=== PATIENT | male | born 1955 | race Caucasian/White ===

== ENCOUNTER 2018-02-12 15:53 | Emergency (ER) | payer BC ==
[~2018-02-12] VITALS: Ht 185.4 cm; Wt 136.4 kg
[~2018-02-12 15:53] MED LIST: ASPI-1265 PO; GLUC-133 PO; LOSA1TAB39 PO; MELA3TAB PO; OMEG1000 PO; SOTA80TA73 PO
[2018-02-12] MEDS ORDERED: IBUP-2417 PO (16:16)
[2018-02-12 16:20] LABS: BASOPHILS % (AUTO) 0 % (0-1); EOSINOPHILS # (AUTO) 0.3 X10'3 (0-0.9); EOSINOPHILS % (AUTO) 2.5 % (0-6); HEMATOCRIT 50.3 % (42.0-52.0); HEMOGLOBIN 17.1 g/dl (14.0-17.9); LYMPHOCYTES # (AUTO) 1.5 X10'3 (1.1-4.8); LYMPHOCYTES % (AUTO) 13.9 % (21-51); MEAN CORPUSCULAR HEMOGLOBIN 31.5 PG (27.0-31.0); MEAN CORPUSCULAR VOLUME 92.6 FL (78-98); MEAN PLATELET VOLUME 8.1 FL (7.4-10.4); MONOCYTES # (AUTO) 0.7 X10'3 (0-0.9); NEUTROPHILS # (AUTO) 8.6 X10'3 (1.8-7.7); NEUTROPHILS % (AUTO) 77.6 % (42-75); PLATELET COUNT 364 X10'3 (140-440); RED BLOOD COUNT 5.43 X10'6 (4.70-6.10); RED CELL DISTRIBUTION WIDTH 14.4 % (11.5-14.5)
[2018-02-12 16:30] LABS: PARTIAL THROMBOPLASTIN TIME 25 SECONDS (22-32); PROTHROMBIN TIME 10.8 SECONDS (9.0-12.0)
[2018-02-12 16:35] LABS: ALANINE AMINOTRANSFERASE 87 U/L (12-78); ALBUMIN 3.8 G/DL (3.4-5.0); ALBUMIN/GLOBULIN RATIO 0.8 (1.1-1.5); ALKALINE PHOSPHATASE 77 IU/L (46-116); ANION GAP 11 (8-16); ASPARTATE AMINO TRANSFERASE 47 U/L (10-37); BILIRUBIN,TOTAL 0.7 MG/DL (0.1-1.0); BLOOD UREA NITROGEN 13 MG/DL (7-18); BUN/CREATININE RATIO 12.6 (5.4-32.0); CHLORIDE 103 MMOL/L (99-107); CREATININE 1.03 MG/DL (0.60-1.10); GLUCOSE 132 MG/DL (70-104); SODIUM 139 MMOL/L (135-145); TOTAL CARBON DIOXIDE 24.7 MMOL/L (24-32); TOTAL PROTEIN 8.5 G/DL (6.4-8.2); eGFR 73 ML/MIN
[2018-02-12] MEDS ORDERED: ondansetron/PF 4mg/2ml inj IV ONE (16:45)
[2018-02-12] MEDS ORDERED: morphine 4 MG/ML inj SYRINge IV ONE (16:45)
[2018-02-12] MEDS ORDERED: LIDOcaine Viscous 15ml cup MM PRN (16:50)
[2018-02-12] MEDS ORDERED: mag hydrox/Alum hydrox/simeth 30ml oral suspension PO ONE (16:50)
[2018-02-12] MEDS ORDERED: normal saline 1000ML IV soln IVB ONE (17:05)
[2018-02-12] MEDS ORDERED: pantoprazole 40 MG vial IV ONE (17:05)
[2018-02-12] MEDS ORDERED: famotidine/PF 10 mg/ml inj IV ONE (17:05)
[2018-02-12 17:12] LABS: LIPASE 108 U/L (73-393)
[2018-02-12] MEDS ORDERED: iohexol 350MG/ML 100ml bottle IV ONE (17:50)
[2018-02-12 19:42] VITALS: BP 154/89
== END 2018-02-12 19:44 | disposition home or self-care (01) ==
LOC: ER 15:54
DX: R10.13 Epigastric pain (principal); M54.6 Pain in thoracic spine; R11.0 Nausea; I10 Essential (primary) hypertension; I48.91 Unspecified atrial fibrillation; Z79.82 Long term (current) use of aspirin; Z79.899 Other long term (current) drug therapy
CPT/HCPCS: 36415; 71045; 71275; 74174; 80053; 83690; 84484; 85025; 85610; 85730; 93005; 96361; 96374; 96375; 99285; C9113; J3490; J7030; Q9967

== ENCOUNTER 2022-01-15 13:35 | Outpatient (CLI) | payer MEDICARE, OTHER ==
[~2022-01-15 13:35] MED LIST changes: +IBUP-2417 PO; -MELA3TAB PO; +MELA3TAB39 PO
[2022-01-15 14:48] LABS: BASOPHILS # (AUTO) 0.1 X10'3 (0-0.2); BASOPHILS % (AUTO) 0.9 % (0-1); EOSINOPHILS # (AUTO) 0.5 X10'3 (0-0.9); EOSINOPHILS % (AUTO) 5.3 % (0-6); LYMPHOCYTES % (AUTO) 19.9 % (21-51); MEAN CORPUSCULAR HEMOGLOBIN 31.9 PG (27.0-31.0); MEAN CORPUSCULAR HGB CONC 34.4 g/dL (33.0-36.5); MEAN CORPUSCULAR VOLUME 92.9 FL (78-98); MEAN PLATELET VOLUME 7.9 FL (7.4-10.4); MONOCYTES % (AUTO) 9.7 % (2-12); NEUTROPHILS # (AUTO) 6.5 X10'3 (1.8-7.7); NEUTROPHILS % (AUTO) 64.2 % (42-75); PRE OP HEMATOCRIT 44.3 % (42.0-52.0); PRE OP HEMOGLOBIN 15.2 g/dL (14.0-17.9); PRE OP PLATELET COUNT 374 X10'3 (140-440); RED BLOOD COUNT 4.77 X10'6 (4.70-6.10); RED CELL DISTRIBUTION WIDTH 14.1 % (11.5-14.5)
[2022-01-15 15:03] LABS: ALBUMIN 3.8 G/DL (3.4-5.0); ALBUMIN/GLOBULIN RATIO 0.9 (1.1-1.5); ALKALINE PHOSPHATASE 91 IU/L (46-116); BLOOD UREA NITROGEN 28 MG/DL (7-18); BUN/CREATININE RATIO 21.7 (5.4-32.0); CALCIUM 9.4 MG/DL (8.5-10.1); CHLORIDE 104 MMOL/L (99-107); CREATININE 1.29 MG/DL (0.60-1.10); PRE OP ALT 47 U/L (30-65); PRE OP ANION GAP 11 (8-16); PRE OP AST 25 U/L (10-37); PRE OP BILIRUB, TOTAL 0.8 MG/DL (0.0-1.0); PRE OP GLUCOSE 141 MG/DL (70-104); PRE OP POTASSIUM 3.4 MMOL/L (3.4-5.1); PRE OP SODIUM 142 MMOL/L (135-145); TOTAL CARBON DIOXIDE 26.9 MMOL/L (24-32); TOTAL PROTEIN 8.2 G/DL (6.4-8.2); eGFR 55 ML/MIN
[2022-01-15] MEDS ORDERED: DICL75TA28 PO (15:55)
[2022-01-15] MEDS ORDERED: ATOR40TA72 PO (15:55)
== END 2022-01-15 23:59 | disposition home or self-care (01) ==
LOC: LAB 13:35 → EDSTATUS 01-17 12:00
PROVIDERS: ATTEND Podiatrist Foot & Ankle Surgery
DX: S86.011A Strain of right Achilles tendon, initial encounter (principal); M21.6X1 Other acquired deformities of right foot; M21.41 Flat foot [pes planus] (acquired), right foot; Z79.899 Other long term (current) drug therapy; Z98.890 Other specified postprocedural states; X58.XXXA Exposure to other specified factors, initial encounter; Y93.89 Activity, other specified; Y92.89 Other specified places as the place of occurrence of the external cause; Y99.8 Other external cause status
CPT/HCPCS: 36415; 80053; 85025; 87811; 93005; J7120

== ENCOUNTER 2022-02-07 08:41 | Day surgery (SDC) | payer MEDICARE, OTHER ==
[2022-01-30 15:20] LABS: BASOPHILS # (AUTO) 0.1 X10'3 (0-0.2); BASOPHILS % (AUTO) 1.1 % (0-1); EOSINOPHILS # (AUTO) 0.6 X10'3 (0-0.9); EOSINOPHILS % (AUTO) 6.8 % (0-6); LYMPHOCYTES # (AUTO) 2.2 X10'3 (1.1-4.8); LYMPHOCYTES % (AUTO) 23.6 % (21-51); MEAN CORPUSCULAR HGB CONC 34.4 g/dL (33.0-36.5); MEAN CORPUSCULAR VOLUME 92.9 FL (78-98); MEAN PLATELET VOLUME 7.7 FL (7.4-10.4); MONOCYTES % (AUTO) 11.3 % (2-12); NEUTROPHILS # (AUTO) 5.3 X10'3 (1.8-7.7); NEUTROPHILS % (AUTO) 57.2 % (42-75); PRE OP HEMATOCRIT 45.7 % (42.0-52.0); PRE OP HEMOGLOBIN 15.7 g/dL (14.0-17.9); PRE OP PLATELET COUNT 359 X10'3 (140-440); RED BLOOD COUNT 4.91 X10'6 (4.70-6.10); RED CELL DISTRIBUTION WIDTH 13.9 % (11.5-14.5)
[2022-01-30 15:32] LABS: ALBUMIN 3.7 G/DL (3.4-5.0); ALBUMIN/GLOBULIN RATIO 0.8 (1.1-1.5); ALKALINE PHOSPHATASE 98 IU/L (46-116); BLOOD UREA NITROGEN 25 MG/DL (7-18); BUN/CREATININE RATIO 20.7 (5.4-32.0); CALCIUM 9.1 MG/DL (8.5-10.1); CHLORIDE 103 MMOL/L (99-107); CREATININE 1.21 MG/DL (0.60-1.10); PRE OP ALT 61 U/L (30-65); PRE OP ANION GAP 9 (8-16); PRE OP AST 31 U/L (10-37); PRE OP BILIRUB, TOTAL 0.7 MG/DL (0.0-1.0); PRE OP GLUCOSE 108 MG/DL (70-104); PRE OP POTASSIUM 3.5 MMOL/L (3.4-5.1); PRE OP SODIUM 141 MMOL/L (135-145); TOTAL CARBON DIOXIDE 29.1 MMOL/L (24-32); TOTAL PROTEIN 8.4 G/DL (6.4-8.2); eGFR 60 ML/MIN
[~2022-02-07] VITALS: Ht 188 cm; Wt 140.8 kg
[2022-02-07] VITALS (20 sets, daily range): BP systolic 116–170; BP diastolic 67–100
[~2022-02-07 08:41] MED LIST changes: +ATOR40TA72 PO; +DICL75TA28 PO; +DOCUMENT DATE & TIME OF BETA-BLOCKER PO ONE; -GLUC-133 PO; -IBUP-2417 PO; -MELA3TAB39 PO; -OMEG1000 PO; +ceFAZolin inj. 3,000 MG in normal saline 100ml IV soln 100 ML IV ONE; +famotidine 20mg tablet PO ONE; +ringers solution, lacted 1,000 ML IV SCH
[2022-02-07] MEDS ORDERED: bacitracin 15gm ointment TP ONE ×2 (12:02→13:21)
[2022-02-07] MEDS ORDERED: midazolam 1 mg/ML 2ml injection ONE (12:18)
[2022-02-07] MEDS ORDERED: fentaNYL /PF 50mcg/ml 5ml ampule ONE (12:18)
[2022-02-07] MEDS ORDERED: sevoflurane 250ml liquid IH ONE (12:21)
[2022-02-07] MEDS ORDERED: propofol 10mg/ml 20ml vial IV ONE (12:21)
[2022-02-07] MEDS ORDERED: rocuronium 10mg/ml inj IV ONE (12:21)
[2022-02-07] MEDS ORDERED: LIDOcaine 1% (10mg/ml)w/preservative inj. 20ml MDV ONE (12:21)
[2022-02-07] MEDS ORDERED: labetalol 20mg/4ml (5mg/ml) syringe IV PRN (12:25)
[2022-02-07] MEDS ORDERED: ondansetron/PF 4mg/2ml inj IV PRN (12:25)
[2022-02-07] MEDS ORDERED: morphine 2 MG/ML inj. syringe IV PRN (12:25)
[2022-02-07] MEDS ORDERED: proCHLORperazine 10 MG/2 ml inj IV PRN (12:25)
[2022-02-07] MEDS ORDERED: hydrALAZINE 20mg/ml inj. IV PRN (12:25)
[2022-02-07] MEDS ORDERED: meperidine/PF 25mg/ml syringe IV PRN (12:25)
[2022-02-07] MEDS ORDERED: ringers solution, lacted 1,000 ML IV SCH (12:25)
[2022-02-07] MEDS ORDERED: acetaminophen 1,000mg/100ml IV 100 ML IV PRN (12:25)
[2022-02-07] MEDS ORDERED: ketorolac tromethamine 15mg/ml inj. IV ONE (12:25)
[2022-02-07] MEDS ORDERED: ROPIVAcaine 0.2%/PF PUMP/bolus 545 ML POPLITEAL SCH (13:00)
[2022-02-07] MEDS ORDERED: ROPIVAcaine 0.2% (10 MG/5 ML) BOLUS INJECTION POPLITEAL PRN (13:00)
[2022-02-07] MEDS ORDERED: dexamethasone sod phosphate 4mg/ml inj. ONE (13:17)
[2022-02-07] MEDS ORDERED: ePHEDrine 50MG/ML INJ. ONE (13:17)
[2022-02-07] MEDS ORDERED: ondansetron/PF 4mg/2ml inj ONE (13:17)
[2022-02-07] MEDS ORDERED: 0.9 % SODIUM CHLORIDE 10 ML VIAL ONE (13:17)
[2022-02-07] MEDS ORDERED: morphine 10mg/ml inj. ONE (15:05)
--- NOTE | 2022-02-07 15:11 | NUR ---
Received from OR via [facility], accompanied by Anesthesiologist and report given by JESICA Anesthesiologist. PATIENT WAKING UP, DENIES PAIN, V/S WNL, 20G TO L HAND, RIGHT FOOT SPLINT AND ALEX WRAP DRESSING C/D/I. RLE ELEVATED AND APPLIED ICE PACK. Addendum: 02/07/22 at 1632 by Silverio Arshad RN Amended: Links added.
[2022-02-07] MEDS: meperidine/PF 25mg/ml syringe IV PRN ×4 (15:35→17:02)
[2022-02-07] MEDS: morphine 4 MG/ML inj SYRINge IV PRN ×2 (15:39→15:44)
[2022-02-07] MEDS ORDERED: HYDROcodone/acetaminophen 10/325mg tab PO ONE (17:10)
--- NOTE | 2022-02-07 17:56 | NUR ---
ALL DISCHARGE CRITERIA HAS BEEN MET. VSS, PAIN AT A TOLERABLE LEVEL, ABLE TO SAFELY AMBULATE AND TRANSFER SELF. IV TAKEN OUT WITHOUT ANY COMPLICATIONS. ALL DISCHARGE INSTRUCTIONS COVERED WITH PATIENT AND ALL QUESTIONS ANSWERED. PATIENT TAKEN OUT VIA WHEELCHAIR WITH ALL BELONGINGS TO PERSONAL VEHICLE WHERE FAMILY/FRIEND DROVE PATIENT HOME. GIVEN ON-Q PUMP BROCHURES AND HOME INSTRUCTIONS. PATIENT VERBALIZED UNDERSTANDING HOW TO DISCONTINUE IT WITH NO FURTHER QUESTIONS. Addendum: 02/07/22 at 1811 by Silverio Arshad RN Amended: Links added.
== END 2022-02-07 17:56 | disposition home or self-care (01) ==
LOC: PAS 08:41
PROVIDERS: ATTEND Podiatrist Foot & Ankle Surgery
DX: S86.011A Strain of right Achilles tendon, initial encounter (principal); M21.6X1 Other acquired deformities of right foot; M21.41 Flat foot [pes planus] (acquired), right foot; Z79.899 Other long term (current) drug therapy; X58.XXXA Exposure to other specified factors, initial encounter; Y93.89 Activity, other specified; Y92.89 Other specified places as the place of occurrence of the external cause; Y99.8 Other external cause status; G89.18 Other acute postprocedural pain; M19.071 Primary osteoarthritis, right ankle and foot
CPT/HCPCS: 27650; 27691; 36415; 64445; 64450; 76942; 80053; 82948; 85025; 87811; A6222; A6258; A6402; C1713; J0131; J0690; J1100; J1885; J2175; J2250; J2270; J2274; J2405; J2704; J2795; J3010; J3490; J7030; J7120; Z7506; Z7508; Z7512; A4215; A4618; A6253; A6449; A7000

== ENCOUNTER 2023-08-24 13:35 | Emergency (ER) | payer MEDICARE, OTHER ==
[~2023-08-24] VITALS: Ht 188 cm; Wt 150.0 kg
[~2023-08-24 13:35] MED LIST changes: -DOCUMENT DATE & TIME OF BETA-BLOCKER PO ONE; -ceFAZolin inj. 3,000 MG in normal saline 100ml IV soln 100 ML IV ONE; -famotidine 20mg tablet PO ONE; -ringers solution, lacted 1,000 ML IV SCH
[2023-08-24 13:51] LABS: BASOPHILS # (AUTO) 0.1 X10'3 (0-0.2); EOSINOPHILS # (AUTO) 0.6 X10'3 (0-0.9); EOSINOPHILS % (AUTO) 7.3 % (0-6); HEMATOCRIT 46.7 % (42.0-52.0); LYMPHOCYTES # (AUTO) 1.8 X10'3 (1.1-4.8); LYMPHOCYTES % (AUTO) 23.1 % (21-51); MEAN CORPUSCULAR HEMOGLOBIN 32.3 PG (27.0-31.0); MEAN CORPUSCULAR HGB CONC 34.3 g/dL (33.0-36.5); MEAN PLATELET VOLUME 7.6 FL (7.4-10.4); MONOCYTES % (AUTO) 12.7 % (2-12); NEUTROPHILS # (AUTO) 4.4 X10'3 (1.8-7.7); NEUTROPHILS % (AUTO) 55.9 % (42-75); PLATELET COUNT 348 X10'3 (140-440); RED BLOOD COUNT 4.97 X10'6 (4.70-6.10); RED CELL DISTRIBUTION WIDTH 14.6 % (11.5-14.5); WHITE BLOOD COUNT 7.9 X10'3 (4.5-11.0)
[2023-08-24 14:12] LABS: ALANINE AMINOTRANSFERASE 51 U/L (12-78); ALBUMIN 3.9 G/DL (3.4-5.0); ALBUMIN/GLOBULIN RATIO 0.9 (1.1-1.5); ALKALINE PHOSPHATASE 93 IU/L (46-116); ANION GAP 8 (8-16); ASPARTATE AMINO TRANSFERASE 24 U/L (10-37); BLOOD UREA NITROGEN 23 MG/DL (7-18); BUN/CREATININE RATIO 19.8 (10.0-20.0); CHLORIDE 104 MMOL/L (99-107); CREATININE 1.16 MG/DL (0.60-1.10); GLUCOSE 131 MG/DL (70-104); POTASSIUM 3.4 MMOL/L (3.5-5.1); SODIUM 143 MMOL/L (135-145); TOTAL CARBON DIOXIDE 30.6 MMOL/L (24-32); TOTAL PROTEIN 8.1 G/DL (6.4-8.2); eCRCL 70 ML/MIN; eGFR 62 ML/MIN
[2023-08-24 14:19] LABS: PRO BRAIN NATRIURETIC PEPTIDE 42 PG/ML (0-125)
[2023-08-24] MEDS ORDERED: FAMO-129 PO (19:03)
[2023-08-24 19:08] VITALS: BP 169/88; PULSE 66; RESP 18; TEMP 98; O2SAT 92
== END 2023-08-24 19:14 | disposition home or self-care (01) ==
LOC: ER 13:35
DX: R07.89 Other chest pain (principal); R06.02 Shortness of breath; I10 Essential (primary) hypertension; Z79.82 Long term (current) use of aspirin; Z79.899 Other long term (current) drug therapy; Z79.1 Long term (current) use of non-steroidal anti-inflammatories (NSAID)
CPT/HCPCS: 36415; 71045; 80053; 83880; 84484; 85025; 93005; 99285

== ENCOUNTER 2024-08-31 08:19 | Outpatient (CLI) | payer MEDICARE, OTHER ==
[~2024-08-31 08:19] MED LIST changes: +APIX5TAB3 PO; -ASPI-1265 PO; -DICL75TA28 PO; +HYDR-3973 PO; +METF-900 PO; +TRAZ-251 PO; +iohexol 350MG/ML 100ml bottle IV ONE
[2024-08-31 09:55] LABS: ALBUMIN 3.5 G/DL (3.4-5.0); ANION GAP 4 (8-16); BLOOD UREA NITROGEN 25 MG/DL (7-18); BUN/CREATININE RATIO 21.2 (10.0-20.0); CALCIUM 8.9 MG/DL (8.5-10.1); CHLORIDE 107 MMOL/L (99-107); CREATININE 1.18 MG/DL (0.60-1.10); GLUCOSE 126 MG/DL (70-104); SODIUM 143 MMOL/L (135-145); TOTAL CARBON DIOXIDE 31.7 MMOL/L (24-32); eGFR 61 ML/MIN
== END 2024-08-31 23:59 | disposition home or self-care (01) ==
LOC: RAD 08:19
PROVIDERS: ATTEND Internal Medicine Cardiovascular Disease
DX: I25.10 Atherosclerotic heart disease of native coronary artery without angina pectoris (principal); I48.91 Unspecified atrial fibrillation; I51.7 Cardiomegaly
CPT/HCPCS: 36415; 75572; 80048; Q9967

== ENCOUNTER 2025-01-05 08:41 | Outpatient (CLI) | payer MEDICARE, OTHER ==
[~2025-01-05 08:41] MED LIST changes: -iohexol 350MG/ML 100ml bottle IV ONE
[2025-01-05 09:13] LABS: CREATININE 1.11 MG/DL (0.60-1.10); TOTAL CARBON DIOXIDE 27.3 MMOL/L (24-32); eGFR 65 ML/MIN
--- NOTE | 2025-01-05 18:17 | RADIOLOGY REPORT ---
Procedure: CT POST WATCHMAN Reason for study/Clinical History: Atrial fibrillation, evaluate pulmonary veins for EP ablation Comparison Study: CT CTA PRE WATCHMAN on DOS: 08/31/24 Exam Date: 01/05/2025 10:28 AM Technique: ECG gated cardiac and chest angiogram was performed following intravenous administration o f 100mL of Omnipaque 350. Thin and thick section axial, coronal, and sagittal images were reconstruc mariana and reviewed on a PACS workstation. Post processing of left atrium and pulmonary veins with 3D re constructions was performed on an independent system workstation. CT low dose technique was utilized. Findings: Left atrial appendage: Left atrial occlusion device in place. Minimal residual flow in the distal lef t atrial appendage. Other Cardiac: Normal size of ventricles and right atrium. No pericardial thickening or effusion. Moderate coronary artery calcification. Other findings: Normal caliber of thoracic aorta and main pulmonary artery. No central pulmonary embo lism. No consolidation or edema. Subcentimeter mediastinal lymph nodes.. Limited portions of the upper abdo men demonstrate no acute findings. No acute osseous abnormality. Impression: 1. Left atrial appendage occlusion device in place. Minimal flow distal to the occlusion device. Cli nical correlation and continued follow-up is recommended. HS:Y
== END 2025-01-05 23:59 | disposition home or self-care (01) ==
LOC: RAD 08:41
PROVIDERS: ATTEND Nurse Practitioner Family
DX: I25.10 Atherosclerotic heart disease of native coronary artery without angina pectoris (principal); I48.91 Unspecified atrial fibrillation; Z95.818 Presence of other cardiac implants and grafts
CPT/HCPCS: 36415; 71275; 75572; 80048; Q9967